=== PATIENT | male | born 1950 ===

== ENCOUNTER 2018-01-25 09:06 | Outpatient (CLI) | payer MEDICARE, OTHER ==
[2018-01-25 13:36] LABS: ALBUMIN 4.1 g/dL (3.2-5.5); ALBUMIN/GLOBULIN RATIO 1.3 (1.0-2.2); BILIRUBIN,TOTAL 0.8 mg/dL (0.2-1.0); CALCIUM 8.3 mg/dL (8.5-10.3); CREATININE 0.9 mg/dL (0.6-1.2); TOTAL PROTEIN 7.3 g/dL (6.7-8.2)
== END 2018-01-25 09:07 | disposition home or self-care (01) ==
LOC: LAB.WCP 09:06
PROVIDERS: ATTEND Family Medicine
DX: R74.8 Abnormal levels of other serum enzymes (principal)
CPT/HCPCS: 36415; 80053